=== PATIENT | male | born 1935 | race Caucasian/White ===

== ENCOUNTER → 2017-11-18 | Outpatient (CLI) | payer MEDICARE ==
[~2017-11-18] MED LIST: ALEGRA; ALPH0.15 OP; AMLO5TAB13 OR; AMLO5TAB2 PO; BRIM0.2S4 EACH EYE; CARD4TAB2 PO; CLAR10CA3 PO; DESO0.0560 EX; DOXA1 PO; ENOX40P SC; GLIP10TA6 PO; GLIP5 PO; HYDR25TA5 PO; LIPI40TA PO; MELO15; METF500T PO; METF850T OR; MEVA40TA PO; PERC10TA27 PO; PERC5TAB12 PO; PLAV75TA OR; PLAV75TA29 PO; STOO100C PO; TIMO0.5S30 EACH EYE; TRAD5TAB OR; TRAD5TAB PO; ZANTTAB9 PO
--- NOTE | 2017-11-18 10:35 | RADRPT ---
EXAM DATE/TIME: 11/18/2017 10:15 [place] COMPARISON: No previous studies available for comparison. INDICATIONS : Evaluate for pneumonia, pneumothorax or communicable disease. Preop chest for transanal resection MEDICAL HISTORY : None. SURGICAL HISTORY : None. ENCOUNTER: Subsequent ACUITY: 1 day PAIN SCORE: 0/10 LOCATION: Bilateral chest FINDINGS: PA and lateral views of the chest demonstrates hyperinflation which can be seen with CO PD. No infiltrates are seen. Heart is normal in size. The mediastinal contours are unremarkable. O sseous structures are intact. CONCLUSION: Hyperinflation which can be seen with COPD. No evidence for an infiltrate. Diego Castellano MD on November 18, 2017 at 10:32 Board Certified Radiologist. This report was verified electronically.
[2017-11-18 10:40] LABS: BILIRUBIN, URINE NEG (NEG); BLOOD, URINE NEG (NEG); GLUCOSE,URINE NEG (NEG); KETONE, URINE NEG (NEG); NITRITE,URINE NEG (NEG); URINE COLOR YELLOW (YELLW/STRAW); URINE LEUKOCYTE ESTERASE NEG (NEG)
[2017-11-18 10:47] LABS: PROTHROMBIN TIME - PATIENT 10.6 SEC (9.8-11.6)
[2017-11-18 10:58] LABS: ALBUMIN 4.1 GM/DL (3.4-5.0); AST (GOT) 9 U/L (15-37); AUTOMATED NEUTROPHIL # 5.2 TH/MM3 (1.8-7.7); BASOPHIL # 0.1 TH/MM3 (0-0.2); BASOPHIL % 0.7 % (0.0-2.0); BICARBONATE 31.2 MEQ/L (21.0-32.0); BLOOD UREA NITROGEN 32 MG/DL (7-18); CHLORIDE 100 MEQ/L (98-107); EOSINOPHIL # 0.3 TH/MM3 (0-0.4); EOSINOPHIL % 3.9 % (0.0-4.0); GLOMERULAR FILTRATION RATE 39 ML/MIN (>89); GLUCOSE,FASTING 131 MG/DL (74-99); HEMATOCRIT 41.1 % (39.0-51.0); HEMOGLOBIN 13.9 GM/DL (13.0-17.0); LYMPH % 15.4 % (9.0-44.0); LYMPHOCYTE # 1.1 TH/MM3 (1.0-4.8); MEAN CORPUSCULAR HEMOGLOBIN 30.4 PG (27.0-34.0); MEAN CORPUSCULAR HGB CONC 33.8 % (32.0-36.0); MEAN PLATELET VOLUME 8.7 FL (7.0-11.0); MONO % 6.9 % (0.0-8.0); MONOCYTE # 0.5 TH/MM3 (0-0.9); NEUT % 73.1 % (16.0-70.0); PLATELET COUNT 159 TH/MM3 (150-450); RED BLOOD COUNT 4.57 MIL/MM3 (4.50-5.90); RED CELL DISTRIBUTION WIDTH 13.5 % (11.6-17.2); SODIUM (NA) 137 MEQ/L (136-145); WHITE BLOOD COUNT 7.2 TH/MM3 (4.0-11.0)
[2017-11-18 11:00] LABS: ALT (GPT) 11 U/L (12-78)
[2017-11-18 11:02] LABS: ALKALINE PHOSPHATASE 68 U/L (45-117); TOTAL BILIRUBIN ADULT 1.1 MG/DL (0.2-1.0); TOTAL PROTEIN 7.4 GM/DL (6.4-8.2)
--- NOTE | 2017-11-19 00:18 | EKG ---
Date Performed: 11/18/2017 Time Performed: 09:33:36 PTAGE: 82 years EKG: Sinus rhythm with 1st degree A-V block Possible septal infarct - age undetermined Generalized low QRS voltages Ab normal ECG PREVIOUS TRACING : 12/19/2012 20.22 Compared to prior tracing, now with 1st degree AVB DOCTOR: Leandro Young Interpretating Date/Time 11/19/2017 00:17:45
== END ==
LOC: CPRE 09:13
PROVIDERS: ATTEND Colon & Rectal Surgery
DX: Z01.810 Encounter for preprocedural cardiovascular examination (principal); Z01.811 Encounter for preprocedural respiratory examination; Z01.812 Encounter for preprocedural laboratory examination; D12.8 Benign neoplasm of rectum; R94.31 Abnormal electrocardiogram [ECG] [EKG]; Z79.01 Long term (current) use of anticoagulants
CPT/HCPCS: 36415; 71046; 80053; 81001; 85025; 85610; 85730; 93005

== ENCOUNTER 2017-11-25 12:02 | Observation (INO) | payer MEDICARE ==
[~2017-11-25] VITALS: Ht 179.1 cm; Wt 93.7 kg
[~2017-11-25 12:02] MED LIST changes: -ALEGRA; -ALPH0.15 OP; -AMLO5TAB13 OR; -DESO0.0560 EX; +DEXAMETHASONE SOD PHOS 4 MG/ML VIAL IV ONE; -DOXA1 PO; -ENOX40P SC; -GLIP5 PO; +GLYCOPYRROLATE 1 MG/5 ML SYRINGE IV PUSH ONE; +LACTATED RINGER'S 1000 ML INJ 1,000 ML IV ONE; +LIDOCAINE HCL 1% PF 5 ML SYRINGE OTHER ONE; -MELO15; -METF850T OR; -MEVA40TA PO; +NEOSTIGMINE 5 MG/5 ML SYRINGE IV PUSH ONE; +ONDANSETRON HCL 4 MG/2 ML VIAL IV ONE; -PERC10TA27 PO; -PERC5TAB12 PO; -PLAV75TA OR; +PROPOFOL 200 MG/20 ML AMP IV ONE; +ROCURONIUM INJ 50 MG/5 ML SYRINGE IV PUSH ONE; -STOO100C PO; -TRAD5TAB OR; -ZANTTAB9 PO
[2017-11-25] MEDS ORDERED: BUPIVACAINE/EPINEPHRINE 0.5% PF 30 ML VIAL ONE (12:52)
[2017-11-25] MEDS ORDERED: LIDOCAINE 1%/EPINEPHrine 1:100,000 SOLN 50 ML VIAL ONE (12:53)
[2017-11-25] MEDS ORDERED: ACETAMINOPHEN 1000 MG/100 ML 100 ML IV ONE (13:09)
[2017-11-25] MEDS ORDERED: CHLORHEXIDINE GLUCONATE 2 % 1 PACK (2 CLOTHS) TOPICAL PRN (13:45)
[2017-11-25] MEDS ORDERED: POVIDONE IODINE 5% (ANTISEPSIS KIT) 4 APPLICATIONS EACH NARE PRN (13:45)
[2017-11-25] MEDS ORDERED: LACTATED RINGER'S 1000 ML IV PRN (13:45)
[2017-11-25] MEDS ORDERED: METOPROLOL TARTRATE 25 MG TAB PO PRN (13:45)
[2017-11-25] MEDS ORDERED: SODIUM CHLORID 0.9% 500 ML IV PRN (13:45)
--- NOTE | 2017-11-25 13:48 | PD.HP.UP ---
H&P Update Note The Pre-Admit History and Physical Examination regarding the above named patient was reviewed (including, but not limited to, vital signs, heart, lungs, co-morbid conditions), and upon re-examination it is noted that: the patient's condition has not significantly changed since the last examination. Kin Haas MD Nov 25, 2017 13:48
[2017-11-25] MEDS ORDERED: metroNIDAZOLE 500 MG INJ 100 ML IV ONE (14:32)
[2017-11-25] MEDS ORDERED: ceFAZolin INJ 1,000 MG VIAL ONE (14:33)
[2017-11-25] MEDS ORDERED: DO NOT ADM ANY ANTICOAGULANT DRUGS PRN (16:10)
[2017-11-25] MEDS ORDERED: MIDAZOLAM HCL 2 MG/2 ML VIAL ONE (16:22)
[2017-11-25] MEDS ORDERED: LORATADINE 10 MG TAB PO PRN (17:00)
[2017-11-25] MEDS ORDERED: ENALAPRILAT 2.5 MG/2 ML VIAL IV PUSH PRN (17:00)
[2017-11-25] MEDS ORDERED: NALOXONE HCL 0.4 MG/ML AMP IV PUSH PRN (17:00)
[2017-11-25] MEDS ORDERED: POTASSIUM CHLOR 20 MEQ PREMIX 100 ML IV PRN (17:00)
[2017-11-25] MEDS ORDERED: Post-op Orders (for Pharmacy) XX ONE (17:00)
[2017-11-25] MEDS ORDERED: ENALAPRILAT 1.25 MG/ML VIAL IV PUSH PRN (17:00)
[2017-11-25] MEDS ORDERED: MORPHINE SULFATE 30 MG/30 ML PCA IV SCH (17:00)
[2017-11-25] MEDS ORDERED: ONDANSETRON HCL 4 MG/2 ML VIAL IV PUSH PRN (17:00)
[2017-11-25] MEDS ORDERED: KETOROLAC TROMETHAMINE 30 MG/ML (IVP) VIAL IVP PRN (17:00)
[2017-11-25] MEDS ORDERED: BUPIVACAINE HCL PF 0.5% 30 ML VIAL NB SCH (17:00)
[2017-11-25] MEDS ORDERED: POTASSIUM CHLOR 40 MEQ PREMIX 100 ML IV PRN (17:00)
[2017-11-25] MEDS ORDERED: BENZOCAINE 6 MG/MENTHOL 10 MG LOZENGE BUCCAL PRN (17:00)
[2017-11-25] MEDS ORDERED: ACETAMINOPHEN/HYDROcodone 325 MG/5 MG TAB PO PRN ×2 (17:00)
[2017-11-25] MEDS ORDERED: ACETAMINOPHEN 325 MG TAB PO PRN (17:00)
[2017-11-25] MEDS: D5-NS + KCL 20 MEQ INJ 1,000 ML IV SCH (17:30)
[2017-11-25 18:23] VITALS: BP 167/73; PULSE 64; RESP 18; TEMP 97.4; O2SAT 94
[2017-11-25] MEDS: metFORMIN HCL 500 MG TAB PO SCH (18:40)
[2017-11-25 20:00] VITALS: BP 169/81; PULSE 70; RESP 18; TEMP 96.6; O2SAT 92
[2017-11-25] MEDS: TIMOLOL MALEATE 0.5% OPHT SOLN 5 ML BTL EACH EYE SCH (21:00)
[2017-11-25] MEDS: BRIMONIDINE TARTRATE 0.2% OPHT SOLN 5 ML BTL EACH EYE SCH (21:00)
[2017-11-25] MEDS ORDERED: ATORVASTATIN 40 MG TAB PO SCH (21:00)
[2017-11-25 21:27] VITALS: RESP 18
[2017-11-25] MEDS: METOCLOPRAMIDE HCL 10 MG/2 ML VIAL IVS SCH (22:06)
--- NOTE | 2017-11-25 23:38 | MP ---
cc: TIFF PRAKASH M.D. DATE OF SURGERY: 11/25/2017 PREOPERATIVE DIAGNOSIS: Large sessile rectal tumor. PROCEDURE 1. Flexible sigmoidoscopy. 2. Examination under anesthesia with transanal resection of large sessile rectal tumor. POSTOPERATIVE DIAGNOSIS: Large sessile rectal tumor. SURGEON Dr. Prakash PLUMBING INSPECTOR: Dr. Jaun Larkin DESCRIPTION OF PROCEDURE: The patient was placed in the supine position. After adequate general anesthesia his legs were elevated and rectal exam confirmed the emptiness the rectal vault with the tumor barely palpable at the fingertip. The Olympus colonoscope was introduced into the rectum and advanced under direct vision through the proximal rectum and sigmoid noting a very large 5-6 cm sessile villous type tumor, appeared to be on the anterior wall of the rectum starting at about 9-10 cm from the anal verge. It occupied about half or two-thirds of the circumference of the bowel wall. Proximal and distal bowel were pretty unremarkable. Next, the patient's legs placed in the candy-cane stirrups and supported appropriately. The perineum was prepped with Betadine solution and draped in the usual sterile fashion. With Dr. Larkin's assistance half-padgett retractor was inserted and the Rabago retractor was inserted, identifying the polyp which seemed to prolapse fairly nicely with traction. 1% Xylocaine with epinephrine was used to create the submucosal plane around the polyp. Dissection then proceeded. The anterior part of the polyp and the tumor was taken off the smooth muscle using electrocautery. It was somewhat difficult due to the size of the polyp and the proximal nature of its proximal extent. Stay sutures were placed in the proximal bowel for traction. After complete excision, there did not appear to be any gross tumor remaining along the mucosal edge of the tumor. Some bleeders were controlled with electrocautery. The defect was then closed in a transverse fashion using multiple Vicryl sutures to reapproximate the mucosa. At completion, proctoscopy was performed showing an adequate closure of the defect with no active bleeding and a proximal lumen which was more than adequate. The patient tolerated the procedure quite well and was brought to the recovery room in stable condition. Sponge and needle counts were correct at the end of the procedure. MD VANESSA Santiago/ZAHEER /6:22 PM /11:13 PM
[2017-11-25] MEDS: metroNIDAZOLE 500 MG INJ 100 ML IV SCH (23:50)
[2017-11-26] MEDS: PCA - TOTAL MG MORPHINE DELIVERED PER SHIFT SCH ×2 (00:25→05:39)
[2017-11-26 00:39] VITALS: BP 138/70; PULSE 77; RESP 18; TEMP 98.1; O2SAT 93
[2017-11-26 04:00] VITALS: BP 156/72; PULSE 72; RESP 18; TEMP 97.6; O2SAT 92
[2017-11-26] MEDS: D5-NS + KCL 20 MEQ INJ 1,000 ML IV SCH (04:00)
[2017-11-26] MEDS: metroNIDAZOLE 500 MG INJ 100 ML IV SCH (04:00)
[2017-11-26 05:28] VITALS: RESP 18
[2017-11-26 06:18] LABS: AUTOMATED NEUTROPHIL # 7.3 TH/MM3 (1.8-7.7); BASOPHIL % 0.1 % (0.0-2.0); HEMATOCRIT 38.2 % (39.0-51.0); HEMOGLOBIN 13.2 GM/DL (13.0-17.0); LYMPH % 7.2 % (9.0-44.0); LYMPHOCYTE # 0.6 TH/MM3 (1.0-4.8); MEAN CELL VOLUME 88.8 FL (80.0-100.0); MEAN CORPUSCULAR HEMOGLOBIN 30.7 PG (27.0-34.0); MEAN CORPUSCULAR HGB CONC 34.5 % (32.0-36.0); MEAN PLATELET VOLUME 8.8 FL (7.0-11.0); MONO % 6.2 % (0.0-8.0); MONOCYTE # 0.5 TH/MM3 (0-0.9); NEUT % 86.5 % (16.0-70.0); PLATELET COUNT 144 TH/MM3 (150-450); RED CELL DISTRIBUTION WIDTH 13.5 % (11.6-17.2); WHITE BLOOD COUNT 8.5 TH/MM3 (4.0-11.0)
[2017-11-26 06:49] LABS: BICARBONATE 30.3 MEQ/L (21.0-32.0); CALCIUM 8.3 MG/DL (8.5-10.1); CREATININE 1.55 MG/DL (0.60-1.30)
[2017-11-26] MEDS ORDERED: glipiZIDE 10 MG TAB PO SCH (07:00)
[2017-11-26] MEDS: TIMOLOL MALEATE 0.5% OPHT SOLN 5 ML BTL EACH EYE SCH (07:13)
[2017-11-26] MEDS: BRIMONIDINE TARTRATE 0.2% OPHT SOLN 5 ML BTL EACH EYE SCH (07:13)
[2017-11-26 08:00] VITALS: BP 137/63; PULSE 61; RESP 16; TEMP 97.4; O2SAT 92
[2017-11-26] MEDS: METOCLOPRAMIDE HCL 10 MG/2 ML VIAL IVS SCH (08:18)
[2017-11-26] MEDS: metFORMIN HCL 500 MG TAB PO SCH (08:19)
[2017-11-26 08:20] VITALS: RESP 18
[2017-11-26] MEDS ORDERED: DOXAZOSIN MESYLATE 4 MG TAB PO SCH (09:00)
[2017-11-26] MEDS ORDERED: amLODIPine BESYLATE 5 MG TAB PO SCH (09:00)
[2017-11-26] MEDS ORDERED: HYDROCHLOROTHIAZIDE 25 MG TAB PO SCH (09:00)
[2017-11-26] MEDS ORDERED: PANTOPRAZOLE SODIUM 40 MG VIAL IVP SCH (09:00)
[2017-11-26] MEDS ORDERED: PANTOPRAZOLE SOD 40 MG DELAYED RELEASE TAB PO SCH (09:00)
[2017-11-26] MEDS ORDERED: NON-FORMULARY DRUG (Linagliptin (Tradjenta) 5 MG) PO SCH (09:00)
[2017-11-26] MEDS ORDERED: LINAGLIPTIN 5 MG PO SCH (09:00)
[2017-11-26] MEDS ORDERED: CLOPIDOGREL 75 MG TAB PO SCH (09:00)
--- NOTE | 2017-11-26 11:29 | HHI.PR ---
Subjective Remarks C/R Surg POD #1 afebrile, VSS UO good +BM Objective - Vital Signs Date Time Temp Pulse Resp B/P (MAP) Pulse Ox O2 Delivery O2 Flow Rate FiO2 11/26/17 08:20 18 11/26/17 08:20 97 Room Air 11/26/17 08:00 97.4 61 137/63 (87) 11/25/17 21:27 2.00 Result Diagram: 11/26/17 0559 11/26/17 0559 Objective Remarks PE alert Abd - soft, non-tender A/P Discharge Planning Imp: stable post-op OOB adv diet dc home Kin Haas MD Nov 26, 2017 11:29
[2017-11-26 12:00] VITALS: BP 139/64; PULSE 62; RESP 15; TEMP 96.4; O2SAT 95
== END 2017-11-26 12:40 | disposition home or self-care (01) ==
LOC: HSDC 12:02 → N07B 16:52 → HSDC 11-26 10:26
PROVIDERS: ADMIT Colon & Rectal Surgery; ATTEND Colon & Rectal Surgery
DX: D37.5 Neoplasm of uncertain behavior of rectum (principal); E11.9 Type 2 diabetes mellitus without complications; I10 Essential (primary) hypertension; Z86.010 Personal history of colon polyps; Z85.46 Personal history of malignant neoplasm of prostate; Z79.84 Long term (current) use of oral hypoglycemic drugs
CPT/HCPCS: 00902; 36415; 45172; 80048; 85025; 86850; 86900; 86901; 88307; 94150; 96365; 96366; 96375; 96376; G0378; J0131; J0690; J1100; J2250; J2270; J2405; J2710; J2765; J3010; J3480; J7120; 88305